=== PATIENT | female | born 1970 ===

== ENCOUNTER 2017-02-06 20:26 | Emergency (ER) | payer OTHER ==
--- NOTE | 2017-02-06 23:56 | ED NURSING NOTES ---
Clinical Report - Nurses [facility] [address] [place] [address] 02/06/2017 20:26 Patient: ANDRAE ASH TRIAGE Acuity: LEVEL 3. Chief Complaint: MIGRAINE HEADACHE. Alert. No acute distress. BYRON COMA SCORE: Byron Coma Scale: 15- eyes open spontaneously (4); best verbal response- oriented x 4 (5); best motor response- obeys commands (6). --20:52 Cathi Frank R.N. 20:49 02/06/17. BP: 127/79. HR: 93. RR: 20. O2 saturation: 100%. Temp: 98.3 F (oral). Pain level now: 8/10. --20:52 Cathi Frank R.N. Weight: 90.7 kg stated. Height/Length: 65 inches Per Patient. BMI: 33.3. --20:51 Cathi Frank R.N. Medications None. --20:50 Cathi Frank R.N. Medication/allergy information source: the patient. --20:52 Cathi Frank R.N. Allergies Imitrex. --20:50 Cathi Frank R.N. History Arrived by private vehicle. Historian: patient. Accompanied by spouse. Primary physician ([facility]). This started today. Relates location as the region of the right eye and frontal region. 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 (vanquish, naproxen). PAST MEDICAL HX: Last normal menstrual period- January 24 2017. SOCIAL HX: Current every day light tobacco smoker (cigarette)- less than 1/2 a pack per day. No alcohol use or drug use. FALL RISK ASSESSMENT: Fall risk assessment completed. No fall risk identified. NUTRITIONAL RISK ASSESSMENT: The nutritional risk assessment revealed no deficiencies. FUNCTIONAL ASSESSMENT: Functional assessment: no impairments noted. LEARNING NEEDS ASSESSMENT: The learning needs assessment revealed no barriers. SKIN INTEGRITY ASSESSMENT: Skin integrity risk assessment completed. No skin integrity risk identified. --20:52 Cathi Frank R.N. PROBLEMS: Pulmonary Nodule. Chest Wall Pain. Obesity. Abrasion(s). Contact Dermatitis. Anxiety Reaction. Headache. Hypertension. Migraine Headache. Depression. --20:50 Cathi Frank R.N. ADDITIONAL SURGERIES: Cholecystectomy. . --20:50 Cathi Frank R.N. Assessment GENERAL / NEURO / PSYCH: Alert. Oriented X 4. Appears in no acute distress. Patient appears calm and cooperative. RESPIRATORY: Respirations not labored. CVS: Capillary refill less than 2 seconds. GI / : Abdomen soft and nontender. SKIN: Mucous membranes are pink. Skin is warm and dry. --20:52 Cathi Frank R.N. Interventions ID band on patient. To treatment room. --20:52 Cathi Frank R.N. PHYSICAL ASSESSMENT 20:53 02/06/17. Ambulatory to room. GENERAL / NEURO / PSYCH: Alert. Oriented X 4. Appears in no acute distress. Speech within normal limits. HEENT: No facial asymmetry noted. Pupils equal, round and reactive to light. RESPIRATORY: Respirations not labored. CVS: Capillary refill less than 2 seconds. GI / : Abdomen soft and nontender. SKIN: Skin is warm and dry. --20:53 Cathi Frank R.N. NURSING PROGRESS NOTES 20:53 02/06/17. Lights dimmed. Two patient identifiers checked. Call light placed in reach. Side rails up x 1. Bed placed in lowest position. Brakes of bed on. Patient ready for evaluation- chart flagged and ED physician notified. --20:53 Cathi Frank R.N. 23:17 02/06/2017 Diazepam (Diazepam) IM 5 mg given. Given in the right gluteus sterling. Allergies verified, confirmed 5 rights and sedative warning given to the patient. --23:17 Sandra Jimenez R.N. 23:22 02/06/17. Care transferred and report received (from Cathi, RN). ( Patient medicated for headache. Family at bedside. lights dimmed for comfort). --23:22 Sandra Jimenez R.N. DISPOSITION / DISCHARGE 00:15 02/07/17. Departure time: 00:Feb 07 2017. Condition at departure: improved and stable. The goals identified in the patient's plan of care were met. No learning barriers present. Reviewed medication(s) side effects, precautions, dosing and course information. Prescription(s) given to the patient. Reviewed referral to a primary care physician for followup. Summary of care provided to patient via paper. Patient verbalized understanding. Written instructions provided in Korean. The patient was discharged home and accompanied by spouse. She left the Emergency Department ambulatory and via private vehicle. Spouse driving. --00:15 Sandra Jimenez R.N. 00:15 02/07/17. BP: 126/71. HR: 85. RR: 18. O2 saturation: 100%. Temp: 98.3 F. Pain level now 12/31. --00:15 Sandra Jimenez R.N. Locked/Released at 02/07/2017 0:15 by Sandra Jimenez R.N.
--- NOTE | 2017-02-06 23:56 | ED ORDER SUMMARY ---
..... Patient: ANDRAE ASH OrderSheet [facility] VisitID: [id number] [address] [place] [address] 47y, F Registration Date/Time: 02/06/2017 ORDER SHEET Weight: 90.7 kg (stated) Allergies: Imitrex GENERAL ORDERS: MEDICATION ORDERS: Diazepam IM 5 mg (HIGH ALERT MEDICATION, NOW) (22:35 02/06/2017 Fidelina Coker) (Ack 22:36 Neville R.NArias) (23:17 Jerome R.NArias) IV FLUIDS: ORDER SHEET NOTES: [Electronically signed by Sandra Jimenez R.N. (00:15 02/07/2017)] [Electronically signed by Denis Le Dr. (05:52 02/07/2017)] [Electronically locked/signed by Sandra Jimenez R.N. (00:15 02/07/2017)]
--- NOTE | 2017-02-06 23:56 | ED ORDER SUMMARY ---
..... Patient: ANDRAE ASH OrderSheet [facility] VisitID: [id number] [address] [place] [address] 47y, F Registration Date/Time: 02/06/2017 ORDER SHEET Weight: 90.7 kg (stated) Allergies: Imitrex GENERAL ORDERS: MEDICATION ORDERS: Diazepam IM 5 mg (HIGH ALERT MEDICATION, NOW) (22:35 02/06/2017 Fidelina Coker) (Ack 22:36 Neville R.NArias) (23:17 Jerome R.NArias) IV FLUIDS: ORDER SHEET NOTES: [Electronically signed by Sandra Jimenez R.N. (00:15 02/07/2017)] [Electronically signed by Denis Le Dr. (05:52 02/07/2017)] [Electronically locked/signed by Sandra Jimenez R.N. (00:15 02/07/2017)]
--- NOTE | 2017-02-06 23:56 | ED CLINICAL REPORT ---
Clinical Report - Physicians/Mid Levels [facility] [address] [place] [address] 02/06/2017 20:26 Patient: ANDRAE ASH Time Seen: 21:10; initial patient contact, initial documentation, patient care assumed. Arrived- By private vehicle. Historian- patient and spouse. HISTORY OF PRESENT ILLNESS Is still present. Chief Complaint: HEADACHE and MIGRAINE HEADACHE. This started today. It is described as "pain". Located in the region of the right eye and frontal region and has had neck pain. Not located in the facial region. At its maximum, severity described as moderate. When seen in the E.D., severity described as moderate. Modifying factors: relieved by nothing. Not worsened by anything. The patient has had photophobia and nausea. No preceding symptoms, blurred vision, numbness or weakness. Similar symptoms previously: Many times. Recent medical care: Not recently seen/assessed. REVIEW OF SYSTEMS No fever, sinus pressure or head injury. All systems otherwise negative, except as recorded above. PAST HISTORY See nurses notes. PROBLEMS: Pulmonary Nodule. Chest Wall Pain. Obesity. Abrasion(s). Contact Dermatitis. Anxiety Reaction. Headache. Hypertension. Migraine Headache. Depression. --20:50 Cathi Frank R.N. ADDITIONAL SURGERIES: Cholecystectomy. . --20:50 Cathi Frank R.N. SOCIAL HISTORY Light tobacco smoker. No alcohol use or drug use. No recent travel. Is a local resident. She lives with spouse. FAMILY HISTORY Negative. ADDITIONAL NOTES The nursing notes have been reviewed with agreement regarding the chief complaint, PMH and patient medications and allergies. PHYSICAL EXAM Vital Signs: 02/06/2017 20:49 BP: 127/79. HR: 93. RR: 20. O2 saturation: 100%. Temp: 98.3 F. Pain level now: 8/10. Have been reviewed as normal. Appearance: Alert. No acute distress. Eyes: Photophobia present. Pupils equal, round and reactive to light and light. Accommodation normal. Eyes normal inspection. EOMs intact. ENT: Pharynx normal. Neck: Mild acute decrease in ROM secondary to pain. Mild pain in the entire posterior neck upon turning the head to the right, turning the head to the left, lifting the head, flexing the neck and extending the neck. Moderate muscle spasm of the right posterior neck. Mild soft tissue tenderness in the right upper neck area. No meningeal signs. No vertebral tenderness. No vertebral step-off. CVS: Normal heart rate and rhythm. Heart sounds normal. Respiratory: No respiratory distress. Breath sounds normal. Skin: No rash. Neuro: Oriented X 3. Alert. Mood/affect normal. Speech normal. Cranial nerves normal (as tested). No motor deficit. No sensory deficit. PROGRESS AND PROCEDURES Course of Care: Diazepam 5 mg IM given. Physical exam findings are improved. Symptoms much better. Disposition: Discharged home in good and improved condition. Condition: good. CLINICAL IMPRESSION Episodic tension-type headache poorly controlled. INSTRUCTIONS Your Current Medications: CONTINUE TAKING THE FOLLOWING MEDICATIONS: None*. Prescription Medications: Baclofen 10 mg: take 1 orally every 8 hours. Dispense thirty (30). No refills. Diclofenac 50 mg tablets: take 1 tablet orally every 8 hours as needed for pain or stiffness. Dispense thirty (30). No refill. Follow-up: Screening today revealed the patient's blood pressure to be in the pre-hypertensive range. The patient should follow up with a primary care provider for blood pressure management. Follow-up with: [facility], , , [address], , [place], [id number] Follow up in about two days. Call for an appointment. (Electronically signed by Denis Le Dr. 02/07/2017 5:52)
--- NOTE | 2017-02-06 23:56 | ED CLINICAL REPORT ---
Clinical Report - Physicians/Mid Levels [facility] [address] [place] [address] 02/06/2017 20:26 Patient: ANDRAE ASH Time Seen: 21:10; initial patient contact, initial documentation, patient care assumed. Arrived- By private vehicle. Historian- patient and spouse. HISTORY OF PRESENT ILLNESS Is still present. Chief Complaint: HEADACHE and MIGRAINE HEADACHE. This started today. It is described as "pain". Located in the region of the right eye and frontal region and has had neck pain. Not located in the facial region. At its maximum, severity described as moderate. When seen in the E.D., severity described as moderate. Modifying factors: relieved by nothing. Not worsened by anything. The patient has had photophobia and nausea. No preceding symptoms, blurred vision, numbness or weakness. Similar symptoms previously: Many times. Recent medical care: Not recently seen/assessed. REVIEW OF SYSTEMS No fever, sinus pressure or head injury. All systems otherwise negative, except as recorded above. PAST HISTORY See nurses notes. PROBLEMS: Pulmonary Nodule. Chest Wall Pain. Obesity. Abrasion(s). Contact Dermatitis. Anxiety Reaction. Headache. Hypertension. Migraine Headache. Depression. --20:50 Cathi Frank R.N. ADDITIONAL SURGERIES: Cholecystectomy. . --20:50 Cathi Frank R.N. SOCIAL HISTORY Light tobacco smoker. No alcohol use or drug use. No recent travel. Is a local resident. She lives with spouse. FAMILY HISTORY Negative. ADDITIONAL NOTES The nursing notes have been reviewed with agreement regarding the chief complaint, PMH and patient medications and allergies. PHYSICAL EXAM Vital Signs: 02/06/2017 20:49 BP: 127/79. HR: 93. RR: 20. O2 saturation: 100%. Temp: 98.3 F. Pain level now: 8/10. Have been reviewed as normal. Appearance: Alert. No acute distress. Eyes: Photophobia present. Pupils equal, round and reactive to light and light. Accommodation normal. Eyes normal inspection. EOMs intact. ENT: Pharynx normal. Neck: Mild acute decrease in ROM secondary to pain. Mild pain in the entire posterior neck upon turning the head to the right, turning the head to the left, lifting the head, flexing the neck and extending the neck. Moderate muscle spasm of the right posterior neck. Mild soft tissue tenderness in the right upper neck area. No meningeal signs. No vertebral tenderness. No vertebral step-off. CVS: Normal heart rate and rhythm. Heart sounds normal. Respiratory: No respiratory distress. Breath sounds normal. Skin: No rash. Neuro: Oriented X 3. Alert. Mood/affect normal. Speech normal. Cranial nerves normal (as tested). No motor deficit. No sensory deficit. PROGRESS AND PROCEDURES Course of Care: Diazepam 5 mg IM given. Physical exam findings are improved. Symptoms much better. Disposition: Discharged home in good and improved condition. Condition: good. CLINICAL IMPRESSION Episodic tension-type headache poorly controlled. INSTRUCTIONS Your Current Medications: CONTINUE TAKING THE FOLLOWING MEDICATIONS: None*. Prescription Medications: Baclofen 10 mg: take 1 orally every 8 hours. Dispense thirty (30). No refills. Diclofenac 50 mg tablets: take 1 tablet orally every 8 hours as needed for pain or stiffness. Dispense thirty (30). No refill. Follow-up: Screening today revealed the patient's blood pressure to be in the pre-hypertensive range. The patient should follow up with a primary care provider for blood pressure management. Follow-up with: [facility], , , [address], , [place], [phone] Follow up in about two days. Call for an appointment. (Electronically signed by Denis Le Dr. 02/07/2017 5:52)
--- NOTE | 2017-02-06 23:56 | ED NURSING NOTES ---
Clinical Report - Nurses [facility] [address] [place] [address] 02/06/2017 20:26 Patient: ANDRAE ASH TRIAGE Acuity: LEVEL 3. Chief Complaint: MIGRAINE HEADACHE. Alert. No acute distress. BYRON COMA SCORE: Byron Coma Scale: 15- eyes open spontaneously (4); best verbal response- oriented x 4 (5); best motor response- obeys commands (6). --20:52 Cathi Frank R.N. 20:49 02/06/17. BP: 127/79. HR: 93. RR: 20. O2 saturation: 100%. Temp: 98.3 F (oral). Pain level now: 8/10. --20:52 Cathi Frank R.N. Weight: 90.7 kg stated. Height/Length: 65 inches Per Patient. BMI: 33.3. --20:51 Cathi Frank R.N. Medications None. --20:50 Cathi Frank R.N. Medication/allergy information source: the patient. --20:52 Cathi Frank R.N. Allergies Imitrex. --20:50 Cathi Frank R.N. History Arrived by private vehicle. Historian: patient. Accompanied by spouse. Primary physician ([facility]). This started today. Relates location as the region of the right eye and frontal region. 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 (vanquish, naproxen). PAST MEDICAL HX: Last normal menstrual period- January 24 2017. SOCIAL HX: Current every day light tobacco smoker (cigarette)- less than 1/2 a pack per day. No alcohol use or drug use. FALL RISK ASSESSMENT: Fall risk assessment completed. No fall risk identified. NUTRITIONAL RISK ASSESSMENT: The nutritional risk assessment revealed no deficiencies. FUNCTIONAL ASSESSMENT: Functional assessment: no impairments noted. LEARNING NEEDS ASSESSMENT: The learning needs assessment revealed no barriers. SKIN INTEGRITY ASSESSMENT: Skin integrity risk assessment completed. No skin integrity risk identified. --20:52 Cathi Frank R.N. PROBLEMS: Pulmonary Nodule. Chest Wall Pain. Obesity. Abrasion(s). Contact Dermatitis. Anxiety Reaction. Headache. Hypertension. Migraine Headache. Depression. --20:50 Cathi Frank R.N. ADDITIONAL SURGERIES: Cholecystectomy. . --20:50 Cathi Frank R.N. Assessment GENERAL / NEURO / PSYCH: Alert. Oriented X 4. Appears in no acute distress. Patient appears calm and cooperative. RESPIRATORY: Respirations not labored. CVS: Capillary refill less than 2 seconds. GI / : Abdomen soft and nontender. SKIN: Mucous membranes are pink. Skin is warm and dry. --20:52 Cathi Frank R.N. Interventions ID band on patient. To treatment room. --20:52 Cathi Frank R.N. PHYSICAL ASSESSMENT 20:53 02/06/17. Ambulatory to room. GENERAL / NEURO / PSYCH: Alert. Oriented X 4. Appears in no acute distress. Speech within normal limits. HEENT: No facial asymmetry noted. Pupils equal, round and reactive to light. RESPIRATORY: Respirations not labored. CVS: Capillary refill less than 2 seconds. GI / : Abdomen soft and nontender. SKIN: Skin is warm and dry. --20:53 Cathi Frank R.N. NURSING PROGRESS NOTES 20:53 02/06/17. Lights dimmed. Two patient identifiers checked. Call light placed in reach. Side rails up x 1. Bed placed in lowest position. Brakes of bed on. Patient ready for evaluation- chart flagged and ED physician notified. --20:53 Cathi Frank R.N. 23:17 02/06/2017 Diazepam (Diazepam) IM 5 mg given. Given in the right gluteus sterling. Allergies verified, confirmed 5 rights and sedative warning given to the patient. --23:17 Sandra Jimenez R.N. 23:22 02/06/17. Care transferred and report received (from Cathi, RN). ( Patient medicated for headache. Family at bedside. lights dimmed for comfort). --23:22 Sandra Jimenez R.N. DISPOSITION / DISCHARGE 00:15 02/07/17. Departure time: 00:Feb 07 2017. Condition at departure: improved and stable. The goals identified in the patient's plan of care were met. No learning barriers present. Reviewed medication(s) side effects, precautions, dosing and course information. Prescription(s) given to the patient. Reviewed referral to a primary care physician for followup. Summary of care provided to patient via paper. Patient verbalized understanding. Written instructions provided in Polish. The patient was discharged home and accompanied by spouse. She left the Emergency Department ambulatory and via private vehicle. Spouse driving. --00:15 Sandra Jimenez R.N. 00:15 02/07/17. BP: 126/71. HR: 85. RR: 18. O2 saturation: 100%. Temp: 98.3 F. Pain level now 12/31. --00:15 Sandra Jimenez R.N. Locked/Released at 02/07/2017 0:15 by Sandra Jimenez R.N.
--- NOTE | 2017-02-07 05:52 | ED DISCHARGE INSTRUCTIONS ---
Patient: ANDRAE ASH General Instructions [facility] VisitID: [id number] [address] [place] [address] 47y, F Registration Date/Time: 02/06/2017 Episodic tension-type headache poorly controlled. INSTRUCTIONS Your Current Medications: CONTINUE TAKING THE FOLLOWING MEDICATIONS: None*. Prescription Medications: Baclofen 10 mg: take 1 orally every 8 hours. Dispense thirty (30). No refills. Diclofenac 50 mg tablets: take 1 tablet orally every 8 hours as needed for pain or stiffness. Dispense thirty (30). No refill. Follow-up: Screening today revealed the patient's blood pressure to be in the pre-hypertensive range. The patient should follow up with a primary care provider for blood pressure management. Follow-up with: [facility], , , [address], , [place], [phone] Follow up in about two days. Call for an appointment. ADDITIONAL INFORMATION Tension Headache Muscle Tension Headache (also called "stress headache") is a very common cause of head pain. Under stress, some people tense the muscles of their shoulder, neck and scalp without knowing it. If this lasts long enough, a headache can occur. These headaches can be very painful and last for hours or even days. Home Care: If you were given pain medicine for this headache, do not drive yourself home. Arrange for a ride, instead. When you get home, try to sleep. You should feel much better when you wake up. Heat to the back of your neck may relieve neck spasm. Drink only clear liquids or eat a very light diet to avoid nausea/vomiting until symptoms improve. Preventing Future Headaches Identify the sources of stress in your life. These may not be obvious! Learn new ways to handle your stress, such as regular exercise, biofeedback, self-hypnosis and meditation. For more information about this, consult your doctor or go to a local bookstore and review the many books and tapes on this subject. At the first sign of a tension headache, take time out if possible. Remove yourself from the stressful situation, find a quiet comfortable place to sit or lie down and let yourself relax. Heat and deep massage of the tight areas in the neck and shoulders may help reduce muscle spasm. Medicine, such as ibuprofen (Advil or Motrin) or a prescribed muscle relaxant may be helpful at this point. Follow Up with your doctor if the headache is not better within the next 24 hours. If you have frequent headaches you should discuss a treatment plan with your primary care doctor. Ask if you can have medicine to take at home the next time you get a bad headache. This may avoid the need for a visit to the emergency department in the future. Poorly controlled chronic headaches may require a referral to a neurologist (headache specialist). Get Prompt Medical Attention if any of the following occur: Worsening of your head pain or no improvement within 24 hours Repeated vomiting (unable to keep liquids down) Fever of 100.4F (38C) or higher, or as directed by your healthcare provider Stiff neck Extreme drowsiness, confusion or fainting Dizziness, vertigo (dizziness with spinning sensation) Weakness of an arm or leg or one side of the face Difficulty with speech or vision You have been given the following additional information: Headache, Tension (Electronically signed by Denis Le Dr. 02/07/2017 5:52)
--- NOTE | 2017-02-07 05:52 | ED MED RECONCILIATION SUMMARY ---
Patient: ANDRAE ASH Medication Reconciliation Report [facility] VisitID: [id number] [address] [place] [address] 47y, F Registration Date/Time: 02/06/2017 Weight: 90.7 kg Height/Length: 65 in. BMI: 33.3 ALLERGIES: Imitrex The patient's Home Medications are listed below: NONE. The source(s) of the original Home Medication information: patient The following Medications were given to the patient in the Emergency Department: Diazepam [IM] IM 5 mg, administered: 02/06/2017 11:17:00 PM The following Medications were prescribed to the patient: Baclofen 10 mg: take 1 orally every 8 hours. Dispense thirty (30). No refills. -- Denis Le Dr. Diclofenac 50 mg tablets: take 1 tablet orally every 8 hours as needed for pain or stiffness. Dispense thirty (30). No refill. -- Denis Le Dr.
--- NOTE | 2017-02-07 05:52 | ED MAR SUMMARY ---
..... Medication Administration Record [facility] [address] [place] [address] Patient: ANDRAE ASH Visit ID: [id number] 47y, F Weight: 90.7 kg Height/Length: 65 in BMI: 33.3 ALLERGIES: Imitrex Given 23:17 02/06/2017 Sandra Jimenez R.N. Medication Administered: DIAZEPAM [IM] (DIAZEPAM), Dose: 5 mg IM. Medication Ordered: Diazepam IM 5 mg (HIGH ALERT MEDICATION, NOW).
--- NOTE | 2017-02-07 05:52 | ED DISCHARGE INSTRUCTIONS ---
Patient: ANDRAE ASH General Instructions [facility] VisitID: [id number] [address] [place] [address] 47y, F Registration Date/Time: 02/06/2017 Episodic tension-type headache poorly controlled. INSTRUCTIONS Your Current Medications: CONTINUE TAKING THE FOLLOWING MEDICATIONS: None*. Prescription Medications: Baclofen 10 mg: take 1 orally every 8 hours. Dispense thirty (30). No refills. Diclofenac 50 mg tablets: take 1 tablet orally every 8 hours as needed for pain or stiffness. Dispense thirty (30). No refill. Follow-up: Screening today revealed the patient's blood pressure to be in the pre-hypertensive range. The patient should follow up with a primary care provider for blood pressure management. Follow-up with: [facility], , , [address], , [place], [id number] Follow up in about two days. Call for an appointment. ADDITIONAL INFORMATION Tension Headache Muscle Tension Headache (also called "stress headache") is a very common cause of head pain. Under stress, some people tense the muscles of their shoulder, neck and scalp without knowing it. If this lasts long enough, a headache can occur. These headaches can be very painful and last for hours or even days. Home Care: If you were given pain medicine for this headache, do not drive yourself home. Arrange for a ride, instead. When you get home, try to sleep. You should feel much better when you wake up. Heat to the back of your neck may relieve neck spasm. Drink only clear liquids or eat a very light diet to avoid nausea/vomiting until symptoms improve. Preventing Future Headaches Identify the sources of stress in your life. These may not be obvious! Learn new ways to handle your stress, such as regular exercise, biofeedback, self-hypnosis and meditation. For more information about this, consult your doctor or go to a local bookstore and review the many books and tapes on this subject. At the first sign of a tension headache, take time out if possible. Remove yourself from the stressful situation, find a quiet comfortable place to sit or lie down and let yourself relax. Heat and deep massage of the tight areas in the neck and shoulders may help reduce muscle spasm. Medicine, such as ibuprofen (Advil or Motrin) or a prescribed muscle relaxant may be helpful at this point. Follow Up with your doctor if the headache is not better within the next 24 hours. If you have frequent headaches you should discuss a treatment plan with your primary care doctor. Ask if you can have medicine to take at home the next time you get a bad headache. This may avoid the need for a visit to the emergency department in the future. Poorly controlled chronic headaches may require a referral to a neurologist (headache specialist). Get Prompt Medical Attention if any of the following occur: Worsening of your head pain or no improvement within 24 hours Repeated vomiting (unable to keep liquids down) Fever of 100.4F (38C) or higher, or as directed by your healthcare provider Stiff neck Extreme drowsiness, confusion or fainting Dizziness, vertigo (dizziness with spinning sensation) Weakness of an arm or leg or one side of the face Difficulty with speech or vision You have been given the following additional information: Headache, Tension (Electronically signed by Denis Le Dr. 02/07/2017 5:52)
--- NOTE | 2017-02-07 05:52 | ED MAR SUMMARY ---
..... Medication Administration Record [facility] [address] [place] [address] Patient: ANDRAE ASH Visit ID: [id number] 47y, F Weight: 90.7 kg Height/Length: 65 in BMI: 33.3 ALLERGIES: Imitrex Given 23:17 02/06/2017 Sandra Jimenez R.N. Medication Administered: DIAZEPAM [IM] (DIAZEPAM), Dose: 5 mg IM. Medication Ordered: Diazepam IM 5 mg (HIGH ALERT MEDICATION, NOW).
--- NOTE | 2017-02-07 05:52 | ED MED RECONCILIATION SUMMARY ---
Patient: ANDRAE ASH Medication Reconciliation Report [facility] VisitID: [id number] [address] [place] [address] 47y, F Registration Date/Time: 02/06/2017 Weight: 90.7 kg Height/Length: 65 in. BMI: 33.3 ALLERGIES: Imitrex The patient's Home Medications are listed below: NONE. The source(s) of the original Home Medication information: patient The following Medications were given to the patient in the Emergency Department: Diazepam [IM] IM 5 mg, administered: 02/06/2017 11:17:00 PM The following Medications were prescribed to the patient: Baclofen 10 mg: take 1 orally every 8 hours. Dispense thirty (30). No refills. -- Denis Le Dr. Diclofenac 50 mg tablets: take 1 tablet orally every 8 hours as needed for pain or stiffness. Dispense thirty (30). No refill. -- Denis Le Dr.
== END 2017-02-07 00:15 | disposition home or self-care (01) ==
LOC: ED SRH 20:26
DX: G44.211 Episodic tension-type headache, intractable (principal); I10 Essential (primary) hypertension; F17.210 Nicotine dependence, cigarettes, uncomplicated; Z88.8 Allergy status to other drugs, medicaments and biological substances